=== PATIENT | female | born 1975 | race Caucasian/White ===

== ENCOUNTER 2018-03-03 07:45 | Outpatient (CLI) | payer BC ==
[~2018-03-03] VITALS: Ht 154.9 cm; Wt 79.8 kg
[2018-03-03 16:59] LABS: BILIRUBIN,URINE NEGATIVE (NEGATIVE); BLOOD, URINE 2+ (NEGATIVE); CLARITY/URINE CLEAR (CLEAR); COLOR,URINE YELLOW (YELLOW); GLUCOSE,URINE NEGATIVE (NEGATIVE); KETONES,URINE NEGATIVE (NEGATIVE); LEUKOCYTE ESTERASE ,URINE 1+ (NEGATIVE); NITRITE, URINE NEGATIVE (NEGATIVE); PH,URINE 5.5 (5.0-8.0); PROTEIN URINE NEGATIVE (NEGATIVE); UROBILINOGEN,URINE 0.2 (0.2-1.0)
[2018-03-03 17:05] LABS: BACTERIA,URINE MODERATE /HPF (None Seen)
[2018-03-03 17:06] LABS: CALCIUM 8.6 mg/dL (8.4-11.0); CREATININE 0.59 mg/dL (0.55-1.30); POTASSIUM 3.6 mmol/L (3.5-5.1)
[2018-03-03 17:13] LABS: BASOPHILS # (AUTO) 0.1 K/uL (0.0-0.2); BASOPHILS % (AUTO) 0.8 % (0.0-2.0); EOSINOPHILS # (AUTO) 0.1 K/uL (0.0-0.4); EOSINOPHILS % (AUTO) 1.6 % (0.0-4.0); HEMATOCRIT 36.4 % (36-48); HEMOGLOBIN 12.3 g/dL (12.0-16.0); LYMPHOCYTES # (AUTO) 2.1 K/uL (1.0-5.5); LYMPHOCYTES % (AUTO) 29.7 % (20.5-51.5); MEAN CORPUSCULAR HEMOGLOBIN 31 pg (27-31); MEAN CORPUSCULAR HGB CONC 34 % (32-36); MEAN CORPUSCULAR VOLUME 93 fL (79.0-98.0); MONOCYTES # (AUTO) 0.6 K/uL (0.0-1.0); MONOCYTES % (AUTO) 8.3 % (1.7-9.3); NEUTROPHILS # (AUTO) 4.2 K/uL (1.8-7.7); NEUTROPHILS % (AUTO) 59.6 % (40.0-70.0); PLATELET COUNT (AUTO) 295 K/uL (130-430); RED BLOOD CELL COUNT(AUTO) 3.93 MIL/uL (4.2-6.2); RED CELL DISTRIBUTION WIDTH 13.5 % (9.0-15.0); WHITE BLOOD COUNT (AUTO) 7.1 K/uL (4.8-10.8)
== END 2018-03-03 18:00 | disposition home or self-care (01) ==
LOC: SLB 07:45 → SMU 03-05 07:45 → SDS 03-05 07:45 → EDSTATUS 03-05 10:00
PROVIDERS: ATTEND Obstetrics & Gynecology
DX: Z01.812 Encounter for preprocedural laboratory examination (principal); D25.0 Submucous leiomyoma of uterus; D64.9 Anemia, unspecified; E03.9 Hypothyroidism, unspecified; N93.9 Abnormal uterine and vaginal bleeding, unspecified
CPT/HCPCS: 36415; 80048; 81000-TC; 84703; 85025; 86886; 86900; 86901

== ENCOUNTER 2018-03-19 07:25 | Day surgery (SDC) | payer BC ==
[2018-03-17 11:27] LABS: BASOPHILS % (AUTO) 0.6 % (0.0-2.0); BILIRUBIN,URINE NEGATIVE (NEGATIVE); BLOOD, URINE 1+ (NEGATIVE); CLARITY/URINE CLEAR (CLEAR); COLOR,URINE YELLOW (YELLOW); EOSINOPHILS # (AUTO) 0.2 K/uL (0.0-0.4); EOSINOPHILS % (AUTO) 1.9 % (0.0-4.0); GLUCOSE,URINE NEGATIVE (NEGATIVE); HEMOGLOBIN 11.5 g/dL (12.0-16.0); KETONES,URINE TRACE (NEGATIVE); LEUKOCYTE ESTERASE ,URINE TRACE (NEGATIVE); LYMPHOCYTES # (AUTO) 2.4 K/uL (1.0-5.5); LYMPHOCYTES % (AUTO) 29.7 % (20.5-51.5); MEAN CORPUSCULAR HEMOGLOBIN 31 pg (27-31); MEAN CORPUSCULAR HGB CONC 34 % (32-36); MEAN CORPUSCULAR VOLUME 92 fL (79.0-98.0); MONOCYTES # (AUTO) 0.7 K/uL (0.0-1.0); MONOCYTES % (AUTO) 8.7 % (1.7-9.3); NEUTROPHILS # (AUTO) 4.7 K/uL (1.8-7.7); NEUTROPHILS % (AUTO) 59.1 % (40.0-70.0); NITRITE, URINE NEGATIVE (NEGATIVE); PH,URINE 6.5 (5.0-8.0); PLATELET COUNT (AUTO) 381 K/uL (130-430); PROTEIN URINE NEGATIVE (NEGATIVE); RED BLOOD CELL COUNT(AUTO) 3.69 MIL/uL (4.2-6.2); UROBILINOGEN,URINE 0.2 (0.2-1.0)
[2018-03-17 11:29] LABS: CALCIUM 8.3 mg/dL (8.4-11.0); CREATININE 0.64 mg/dL (0.55-1.30); POTASSIUM 3.7 mmol/L (3.5-5.1)
[2018-03-17 11:51] LABS: BACTERIA,URINE FEW /HPF (None Seen); HCG,QUAL RESULT NEGATIVE (NEGATIVE); MUCUS,URINE None Seen /LPF (None Seen); YEAST,URINE None Seen /HPF (None Seen)
[~2018-03-19] VITALS: Ht 154.9 cm; Wt 81.2 kg
[2018-03-19] MEDS ORDERED: ONDANSETRON HCL 4 MG/2 ML VIAL IVP PRN ×2 (09:45→10:30)
[2018-03-19] MEDS ORDERED: fentaNYL CITRATE/PF 100 MCG/2 ML AMP IVP PRN ×2 (09:45)
[2018-03-19] MEDS ORDERED: DEXAMETHASONE SOD PHOSPHATE 4 MG/ML VIAL ONE (10:30)
[2018-03-19] MEDS ORDERED: PROMETHAZINE HCL 25 MG/ML AMP IM PRN (10:30)
[2018-03-19] MEDS ORDERED: MIDAZOLAM HCL 5 MG/ML VIAL (VERSED) IV ONE (10:30)
[2018-03-19] MEDS ORDERED: fentaNYL CITRATE/PF 100 MCG/2 ML AMP ONE (10:30)
[2018-03-19] MEDS ORDERED: SEVOFLURANE 15 MIN GAS INH ONE (10:30)
[2018-03-19] MEDS ORDERED: ONDANSETRON HCL 4 MG/2 ML VIAL ONE (10:30)
[2018-03-19] MEDS ORDERED: LR 1,000 ML IV.SOLN IV ONE (10:30)
[2018-03-19] MEDS ORDERED: PROPOFOL 200MG/ 20ML VIAL (DIPRIVAN) IV ONE (10:30)
[2018-03-19] MEDS ORDERED: KETOROLAC TROMETHAMINE 30 MG VIAL ONE (10:30)
[2018-03-19 11:42] VITALS: BP_SYST 96
[2018-03-19] MEDS ORDERED: OXYCODONE/ACETAMINOPHEN 5-325 TABLET PO PRN (12:45)
== END 2018-03-19 12:25 | disposition home or self-care (01) ==
LOC: SMU 07:25 → SDS 07:25
PROVIDERS: ATTEND Obstetrics & Gynecology
DX: N93.9 Abnormal uterine and vaginal bleeding, unspecified (principal); E03.9 Hypothyroidism, unspecified; D64.9 Anemia, unspecified; Z79.899 Other long term (current) drug therapy; Z82.49 Family history of ischemic heart disease and other diseases of the circulatory system; Z83.3 Family history of diabetes mellitus
CPT/HCPCS: 36415; 58558; 80048; 81000; 84703; 85025; 86886; 86900; 86901; 88305; J1100; J1885; J2250; J2405; J2704; J3010; J7120